=== PATIENT | female | born 1975 | race Caucasian/White ===

== ENCOUNTER 2017-08-20 09:38 | Emergency (ER) | payer MEDICAID ==
[~2017-08-20] VITALS: Ht 154.9 cm; Wt 73.0 kg
[2017-08-20 12:15] VITALS: BP 105/66
[2017-08-20] MEDS: ACETAMINOPHEN 325MG TABLET PO ONE (13:16)
[2017-08-20 13:32] LABS: CLARITY URINE CLOUDY (CLEAR); COLOR URINE YELLOW (YELLOW); GLUCOSE URINE NEGATIVE (NEGATIVE); KETONES URINE NEGATIVE (NEGATIVE); LEUKOCYTE ESTERASE URINE 3+ (NEGATIVE); NITRITE URINE NEGATIVE (NEGATIVE); OCCULT BLOOD URINE 2+ (NEGATIVE); PROTEIN URINE TRACE (NEGATIVE); SPECIFIC GRAVITY URINE 1.012 (1.005-1.030); UROBILINOGEN URINE 0.2 E.U./dL (0.2-1.0)
== END 2017-08-20 14:06 | disposition home or self-care (01) ==
LOC: ER 09:38
DX: N10 Acute pyelonephritis (principal)
CPT/HCPCS: 81001; 99283